=== PATIENT | male | born 1995 | race Caucasian/White ===

== ENCOUNTER 2020-08-26 12:18 | Emergency (ER) | payer OTHER, SELFPAY ==
--- NOTE | 2020-08-26 | XR_ITS ---
EXAMINATION: XR KNEE, LEFT CLINICAL INFORMATION: Pain COMPARISON: None TECHNIQUE: Four views of the left knee. FINDINGS: No visible acute fracture or dislocation. No effusion. Alignment is anatomic. Joint spaces are well maintained. No abnormal soft tissue calcification. IMPRESSION: No evidence of acute osseous abnormality.
--- NOTE | 2020-08-26 | XR_ITS ---
EXAMINATION: XR ANKLE, LEFT XR FOOT, LEFT CLINICAL INFORMATION: Pain. COMPARISON: 03/22/2018 TECHNIQUE: Ankle 3 views. Foot 3 views. FINDINGS: At the ankle joint, the ankle mortise is maintained. No acute fracture or dislocation of the tibiotalar joint. Redemonstrated is lateral positioning of the navicular, with medial uncovering of the talar head. Pes planus. Talar beaking is again noted which can be seen with talonavicular coalition, with no definite osseous coalition identified on the provided views. Tarsometatarsal alignment is within normal limits. No evidence of acute fracture. Mild hallux valgus. IMPRESSION: 1. No evidence of acute osseous abnormality. 2. Chronic deformity of the midfoot with lateral positioning of the navicular at the talonavicular articulation is again noted. Similar appearance of talar beaking, which can be seen with talonavicular coalition.
[2020-08-26 12:33] VITALS: BP 137/82; PULSE 80; RESP 18; TEMP 37; O2SAT 98; BMI 38.5
--- NOTE | 2020-08-26 13:06 | ED_ITS ---
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 Mode of arrival: ambulatory Limitations: no limitations History of Present Illness MD complaint: knee injury, leg injury and ankle injury Onset (ago): unknown () Injury: Left: knee, ankle and foot Type of Injury: other (fall) Place: work Severity: moderate Relieving factors: nothing Exacerbating factors: weight bearing and movement Context: fall Associated symptoms: swelling Other symptoms: none Related Data Previous Rx's Medication Instructions Recorded cyclobenzaprine 10 mg PO TID PRN #14 tab 08/26/20 ibuprofen 600 mg PO TID PRN #30 tab 08/26/20 Allergies Allergy/AdvReac Type Severity Reaction Status Date / Time No Known Allergies Allergy Verified 08/26/20 12:33 [No Known Allergies*] Review of Systems Review of Systems: Constitutional : No Fever, No Chills ENT/Mouth : No Ear Pain, No Hoarseness, No sore throat Cardiovascular : No Chest Pain, No SOB Respiratory : No Cough, No Dyspnea Gastrointestinal : No Nausea, No Vomiting, No Diarrhea, No abdominal Pain Musculoskeletal : positive joint pain, No Myalgias, positve Joint Swelling Skin : No Skin lacerations, No rash Neuro : No Weakness, No Numbness Psych : No Anxiety/Panic, No Depression Heme/Lymph: no easy bruising, no Lymphadenopathy All other systems reviewed and are negative PMFSH Past Medical History Medical History (Updated 08/26/20 @ 14:40 by Holly Valladares DO) Arthritis Surgical History (Updated 08/26/20 @ 13:14 by Holly Valladares DO) Hx of appendectomy Social History Social History (Updated 08/26/20 @ 13:13 by Holly Valladares DO) Smoking Status: Current every day smoker Use of substances other than those prescribed or required for medical reasons: No Advance Directives: No Advance Directives Information Provided: Yes Physical Exam Vital Signs and I&O and Narrative: Vital Signs and I&O: Vital Signs Temp 98.6 F 08/26/20 12:33 Pulse 80 08/26/20 12:33 Resp 18 08/26/20 12:33 BP 137/82 08/26/20 12:33 Pulse Ox 98 08/26/20 12:33 Intake & Output 08/25/20 08/26/20 08/26/20 18:59 06:59 18:59 Weight 136.078 kg Body Mass Index 38.5 Appearance: Alert. Oriented X3. No acute distress. Eyes: Pupils equal, round and reactive to light. ENT: Pharynx normal. Neck: Normal inspection. Neck supple. CVS: Normal heart rate and rhythm. Pulses normal. Respiratory: No respiratory distress. Breath sounds normal. Abdomen: Soft and nontender. Skin: Skin warm and dry. Normal skin color. Normal skin turgor. Extremities: No lower extremity edema. ttp along L knee no swelling or signs of infection, mild swelling L ankle and foot, bunion left foot - NV intact, no signs of infection, no calf ttp Neuro: Oriented X 3. No motor deficit. No sensory deficit. Course Course Course Narrative: no acute findings will DC and refer to orthepidics MDM - Extremity Injury (Lower) MDM Narrative Medical decision making narrative: patient with what he reports is ?pinning of L hip he is s/p fall in November at work - did not get xrays of L knee/ankle/foot has had pain and swelling since, NV intact, no signs of infection, no signs of DVT, xrays ordered Discharge Plan Discharge Clinical Impression: Arthralgia Qualifiers: Joint pain location: foot Laterality: left Qualified Code(s): M25.572 - Pain in left ankle and joints of left foot Patient Disposition: Home, Self-Care Instructions: Arthralgia (ED) Prescriptions: New cyclobenzaprine 10 mg tablet 10 mg PO TID PRN (Reason: muscle spasm) Qty: 14 RF: 0 ibuprofen 600 mg tablet 600 mg PO TID PRN (Reason: pain) Qty: 30 RF: 0 Referrals: Nathalie Alvarado PA-C [Physician Brand Marketing Manager] - 1 week (call for appointment) Stand Alone Forms: Work/School Release
== END 2020-08-26 15:46 | disposition home or self-care (01) ==
PROVIDERS: Emergency Provider Emergency Medicine
DX: M25.572 Pain in left ankle and joints of left foot (principal); F17.200 Nicotine dependence, unspecified, uncomplicated; Z71.6 Tobacco abuse counseling
CPT/HCPCS: 73564; 73610; 73630; 99283; 99284

== ENCOUNTER 2020-09-09 09:17 | Outpatient (REF) | payer OTHER, SELFPAY | END 2020-09-09 09:18 | disposition home or self-care (01) | LOC: HO.LAB 09:17 | PROVIDERS: Visit Provider Internal Medicine | DX: Z20.828 Contact with and (suspected) exposure to other viral communicable diseases (principal) | CPT/HCPCS: 87635 ==

== ENCOUNTER 2020-12-26 08:38 | Emergency (ER) | payer OTHER, SELFPAY ==
--- NOTE | ~2020-12-26 | XR_ITS ---
EXAMINATION: LEFT KNEE AND LEFT ANKLE. CLINICAL INFORMATION: Fall. COMPARISON: Left ankle 08/26/2020 TECHNIQUE: Left knee 4 views and left ankle 4 views. FINDINGS: Left ankle: The ankle mortise joint spaces preserved. There is lateral positioning of the navicular bone in relation to the talar head with moderate talonavicular beaking. No visible fracture seen. Pes planus deformity is visualized. There is suboptimal visualization of subtalar joint. There is moderate proximal dorsal foot soft tissue swelling. Left knee: There is no visible fracture, dislocation or subluxation. The soft tissues are normal. No joint effusion seen.. XR/XR knee LT 4V IMPRESSION: Chronic deformity midfoot region with lateral positioning of medical bony relation to the talus and a moderate sized talonavicular beaking. No visible fracture. Further evaluation with CT left ankle and orthopedic consult can be performed if patient has continued pain. Unremarkable left knee exam
--- NOTE | ~2020-12-26 | XR_ITS ---
EXAMINATION: LEFT KNEE AND LEFT ANKLE. CLINICAL INFORMATION: Fall. COMPARISON: Left ankle 08/26/2020 TECHNIQUE: Left knee 4 views and left ankle 4 views. FINDINGS: Left ankle: The ankle mortise joint spaces preserved. There is lateral positioning of the navicular bone in relation to the talar head with moderate talonavicular beaking. No visible fracture seen. Pes planus deformity is visualized. There is suboptimal visualization of subtalar joint. There is moderate proximal dorsal foot soft tissue swelling. Left knee: There is no visible fracture, dislocation or subluxation. The soft tissues are normal. No joint effusion seen.. XR/XR ankle LT min 3V IMPRESSION: Chronic deformity midfoot region with lateral positioning of medical bony relation to the talus and a moderate sized talonavicular beaking. No visible fracture. Further evaluation with CT left ankle and orthopedic consult can be performed if patient has continued pain. Unremarkable left knee exam
[2020-12-26 08:55] VITALS: BP 133/84; PULSE 78; RESP 16; TEMP 37.2; O2SAT 96; BMI 38.7
--- NOTE | 2020-12-26 09:03 | PC.NURSE ---
left leg elevated, +pp, cold pack to knee/foot
--- NOTE | 2020-12-26 09:19 | ED_ITS ---
HPI - Extremity Injury (Lower) General Chief Complaint: Extremity Injury, Lower Stated Complaint: FALL Time Seen by Provider: 12/26/20 09:16 History of Present Illness HPI Narrative: Patient is a 25-year-old male slipped on ice. Complaining of pain to the left knee and to the left ankle. Denies loss of consciousness. Denies any systemic complaints. No head injury. Not on blood thinners. Patient from home. No bowel urinary incontinence and no back pain. Pain is 7/10 worse with movement Related Data Previous Rx's Medication Instructions Recorded cyclobenzaprine 10 mg PO TID PRN #14 tab 08/26/20 ibuprofen 600 mg PO TID PRN #30 tab 08/26/20 Allergies Allergy/AdvReac Type Severity Reaction Status Date / Time No Known Allergies Allergy Verified 08/26/20 12:33 [No Known Allergies*] Review of Systems Review of Systems: Constitutional: No Weight loss, No Fever, No Chills, No Night Sweats, No Fatigue, No Malaise ENT/Mouth: No Hearing loss, No Ear Pain, No Nasal Congestion, No Sinus Pain, No Hoarseness, No sore throat, No Rhinorrhea, No Swallowing Difficulty Eyes: No Eye Pain, No Swelling, No Redness, No Foreign Body, No Discharge, No Vision Changes Cardiovascular: No Chest Pain, No SOB, No Dyspnea on Exertion, No Orthopnea, No Edema, No Palpitations Respiratory: No Cough, No Sputum, No Wheezing, No Smoke Exposure, No Dyspnea Gastrointestinal: No Nausea, No Vomiting, No Diarrhea, No Constipation, No abdominal Pain, No Hematochezia, No Melena Genitourinary: no irregular bleeding, No Dysuria, No Urinary Frequency, No Hematuria, No Urinary Incontinence, No Urgency, No Flank Pain, No Urinary Flow Changes, No Hesitancy Musculoskeletal: Positive joint pain, No Myalgias, No Joint Swelling Skin: No Skin Lesions, No rash Neuro: No Weakness, No Numbness, No Paresthesias, No Loss of Consciousness, No Dizziness, No Headache Psych: No Anxiety/Panic, No Depression, No SI/HI/AH/VH, No Social Issues, Heme/Lymph: No Bruising, No Bleeding,No Lymphadenopathy Endocrine: No Polyuria, No Polydipsia, No Temperature Intolerance [facility] Past Medical History Attestation statement: The following information was validated with the patient. Medical History Arthritis Surgical History History of hip surgery Hx of appendectomy Social History Social History Smoking Status: Current every day smoker Smoked in Last 30 Days: No Use of substances other than those prescribed or required for medical reasons: No Advance Directives: No Advance Directives Information Provided: No Physical Exam Vital Signs: Vital Signs: Last Vital Signs Temp 98.9 F 12/26/20 08:55 Pulse 78 12/26/20 08:55 Resp 16 12/26/20 08:55 BP 133/84 12/26/20 08:55 Pulse Ox 96 12/26/20 08:55 Body Mass Index 38.7 Appearance: Alert. Oriented X3. No acute distress. Eyes: Pupils equal, round and reactive to light. ENT: Pharynx normal. Neck: Normal inspection. Neck supple. No lymph nodes noted. No crepitus CVS: Normal heart rate and rhythm. Pulses normal. Normal S1 and S2 Respiratory: No respiratory distress. Breath sounds normal. No Wheezing. No rales Abdomen: Soft and nontender. No rigidity. No distention. good BS x4 Skin: Skin warm and dry. Normal skin color. Normal skin turgor. Extremities: No lower extremity edema. Neurovascular intact to all extremities. No Lacerations. No Rash Neuro: Oriented X 3. Positive pain to the left knee. Limited range of motion. There is no patellar tenderness. No tenderness on palpation of the medial or lateral collateral ligament. Positive pain on palpation to the medial malleolus. Sensation intact. Pulses 2+.. No sensory deficit. Moving all extermities. No slurred speech MDM - Extremity Injury (Lower) MDM Narrative Medical decision making narrative: X-ray showed no acute fracture. Will offer patient Motrin. Crutches for comfort if he needs. Will discharge patient home. In stable condition. Follow-up outpatient basis. Differential Diagnosis Differential diagnosis: Likely ankle sprain and strain Medical Records Attestation: I reviewed the patient's medical records. Lab Data Attestation: I reviewed the patient's lab results. Discharge Plan Discharge Clinical Impression: Ankle sprain and strain, Knee sprain Patient Disposition: Home, Self-Care Prescriptions: No Action cyclobenzaprine 10 mg tablet 10 mg PO TID PRN (Reason: muscle spasm) Qty: 14 RF: 0 ibuprofen 600 mg tablet 600 mg PO TID PRN (Reason: pain) Qty: 30 RF: 0 Referrals: Jorge Alberto Ferraro MD [Physician] - 2 days Print Language: Panamanian
== END 2020-12-26 10:37 | disposition home or self-care (01) ==
PROVIDERS: Emergency Provider Emergency Medicine Emergency Medical Services
DX: S93.402A Sprain of unspecified ligament of left ankle, initial encounter (principal); S96.912A Strain of unspecified muscle and tendon at ankle and foot level, left foot, initial encounter; S83.92XA Sprain of unspecified site of left knee, initial encounter; W00.0XXA Fall on same level due to ice and snow, initial encounter; Y93.9 Activity, unspecified; Y92.480 Sidewalk as the place of occurrence of the external cause; Y99.9 Unspecified external cause status
CPT/HCPCS: 73564; 73610; 99283

== ENCOUNTER 2021-01-21 10:01 | Outpatient (REF) | payer OTHER, SELFPAY ==
--- NOTE | ~2021-01-21 | XR_ITS ---
EXAMINATION: LEFT HIP AND PELVIS X-RAY CLINICAL INFORMATION: Pain COMPARISON: Previous x-ray December 2019 TECHNIQUE: One view of the pelvis and 2 views of the left hip FINDINGS: There is a single orthopedic screw seen in the left proximal femur. This appears unchanged. No fracture, dislocation or x-ray evidence of loosening is seen. The joint spaces are normal. Bones of the pelvis are normal. Soft tissues are normal. XR/XR pelvis 1-2V IMPRESSION: Stable postsurgical changes with single screw in the left proximal femur. Otherwise unremarkable exam.
--- NOTE | ~2021-01-21 | XR_ITS ---
EXAMINATION: LEFT HIP AND PELVIS X-RAY CLINICAL INFORMATION: Pain COMPARISON: Previous x-ray December 2019 TECHNIQUE: One view of the pelvis and 2 views of the left hip FINDINGS: There is a single orthopedic screw seen in the left proximal femur. This appears unchanged. No fracture, dislocation or x-ray evidence of loosening is seen. The joint spaces are normal. Bones of the pelvis are normal. Soft tissues are normal. XR/XR hip LT min 2V IMPRESSION: Stable postsurgical changes with single screw in the left proximal femur. Otherwise unremarkable exam.
== END 2021-01-21 10:02 | disposition home or self-care (01) ==
LOC: HO.XRAY 10:01
PROVIDERS: PCP Internal Medicine; Visit Provider Physician Assistant
DX: M76.892 Other specified enthesopathies of left lower limb, excluding foot (principal)
CPT/HCPCS: 72170; 73502; 99212

== ENCOUNTER 2021-05-11 15:00 | Outpatient (RCR) | payer OTHER, SELFPAY ==
--- NOTE | 2021-03-11 17:08 | MHC.PT.EP ---
[facility] [place] Office [place] Office [place] Office [address] Benny Sullivan [address] [phone] F: [phone] F: [phone] F: [phone] F: [phone] Physical Therapy Plan of Care Date of Evaluation: Date of Surgery: Diagnosis: other specified enthesopathies of left lower limb, excluding foot Assessment: 25 y/o M referred to PT with other specified enthesopathies of left lower limb, foot excluded. He slipped and fell over one year ago while at work landing on L hip. He has had pain since with difficulty walking, standing, and lifting. Of note, he did have PT one year ago which he reported helped somewhat. Examination shows decreased lumbar AROM, decreased L LE strength, leg length discrepancy (L LE shorter), SI dysfunction, and impaired gait pattern. S/s consistent with SI dysfunction and hip dysfucntion. Recommend PT 2x/wee for 5 weeks to address impairments, implement HEP, and optimize functional mobility. Frequency and Duration: The patient will be seen 2x/week for 5 weeks Short Term Goals: 3 weeks: 1. I with HEP 2. Pt will demonstrate 100% lumbar flexion with pain < 3/10 Color Weigher Goals: 5 weeks 1. I with HEP and self management of sx 2. Improve LE strength by one MMT grade to facilitate walking > 30min 3. Pt will be able to lift 25# with proper mechanics and no cues Treatment Plan: Modalities to reduce pain, spasms and effusion. Manual therapy to restore motion and function. Therapeutic exercise to improve strength and flexibility. Neuromuscular re-education for posture and balance. Therapeutic activities to return to functional activities of daily living. Electronically signed by: Mary Connell PT Please sign and return to therapist. Thank you for your referral.
--- NOTE | 2021-05-19 16:03 | MHC.PT.DC ---
[facility] [place] Office [place] Office [place] Office [address] Benny Sullivan [address] [phone] F: [phone] F: [phone] F: [phone] F: [phone] Physical Therapy Discharge Report Diagnosis: other specified enthesopathies of left lower limb, excluding foot Date of Surgery: Date of Evaluation: 03/11/21 Date of Discharge: 05/19/21 Treatments to Date: 10 Cancellations to Date: 0 No Shows to Date: 0 Discharge Status: Improved Function Independent with HEP Discharge Summary: D/c to I HEP. From last visit Pt able to continue paula all exercises with no increase in pain. Pt agreeable to d/c to I with HEP today. Electronically signed by: Mary Connell PT Please sign and return to therapist. Thank you for your referral.
== END 2021-05-19 16:03 | disposition home or self-care (01) ==
LOC: HO.PT 15:00
PROVIDERS: Visit Provider Physician Assistant
DX: M76.892 Other specified enthesopathies of left lower limb, excluding foot (principal)
CPT/HCPCS: 97110; 97112; 97140; 97161; 97530

== ENCOUNTER 2021-06-30 08:32 | Outpatient (REF) | payer OTHER, SELFPAY ==
[2021-06-30 09:21] LABS: MANUAL DIFF FLAG NO
[2021-06-30 09:26] LABS: Basophils Percent Auto 0.6 % (0-2); Eosinophils Absolute Auto 0.3 X10*3/uL (0.0-0.4); Eosinophils Percent Auto 3.9 % (0-4); Hematocrit 42.4 % (42-52); Hemoglobin 13.8 g/dl (14.0-18.0); Imm Gran Abs Auto 0.02 X10*3/uL (0.00-0.03); Imm Gran Pct Auto 0.3 % (0.0-0.4); Lymphocytes Absolute Auto 2.5 X10*3/uL (1.2-4.9); Lymphocytes Percent Auto 39.7 % (20-40); Mean Corpuscular HGB Conc 32.5 g/dl (31.0-36.0); Mean Corpuscular Hemoglobin 27.2 pg (27.0-33.0); Mean Corpuscular Volume 83.6 fL (80-98); Mean Platelet Volume 11.2 fL (9.4-12.4); Monocytes Absolute Auto 0.4 X10*3/uL (0.1-1.2); Monocytes Percent Auto 6.8 % (2-11); Neutrophils Absolute Auto 3.1 X10*3/uL (2.0-8.3); Neutrophils Percent Auto 48.7 % (45-73); Platelet Count 254 X10*3/uL (160-400); Red Blood Count 5.07 X10*6/uL (4.60-5.80); White Blood Count 6.4 X10*3/uL (4.8-10.8)
[2021-06-30 09:45] LABS: Alanine Aminotransferase 60 U/L (0-40); Albumin Level 4.5 g/dL (3.5-5.0); Alkaline Phosphatase 84 U/L (39-117); Anion Gap 12 (12-20); Aspartate Amino Transferase 35 U/L (5-37); Bilirubin Total 0.7 mg/dL (0.0-1.0); Blood Urea Nitrogen 14 mg/dL (9-16); Carbon Dioxide 25 mmol/L (22-29); Chloride 105 mmol/L (96-108); Cholesterol 173 mg/dL; Estimated Glomerular Filt Rate > 60; Glucose Fasting 94 mg/dL (60-99); HDL Cholesterol 43 mg/dL; LDL Cholesterol Calculated 104 mg/dl; Potassium 4.6 mmol/L (3.3-5.1); Sodium 137 mmol/L (135-145); Total Protein 7.6 g/dL (6.5-8.0); Triglycerides 132 mg/dL
== END 2021-06-30 08:33 | disposition home or self-care (01) ==
LOC: HO.LAB 08:32
PROVIDERS: PCP Internal Medicine; Visit Provider Internal Medicine
DX: E66.01 Morbid (severe) obesity due to excess calories (principal); E78.5 Hyperlipidemia, unspecified; D64.9 Anemia, unspecified
CPT/HCPCS: 36415; 80053; 80061; 85025

== ENCOUNTER → 2021-07-22 15:36 | Outpatient (BNVA) | payer OTHER, SELFPAY | PROVIDERS: PCP Internal Medicine; Visit Provider Physician Assistant | DX: M76.892 Other specified enthesopathies of left lower limb, excluding foot (principal) | CPT/HCPCS: 99212 ==

== ENCOUNTER 2021-07-30 06:54 | Emergency (ER) | payer OTHER, SELFPAY ==
--- NOTE | ~2021-07-30 | XR_ITS ---
EXAMINATION: XR ANKLE, LEFT CLINICAL INFORMATION: Reason injury COMPARISON: Previous x-rays most recent December 2020 TECHNIQUE: AP, lateral, and mortise views of the left ankle. FINDINGS: No acute fracture or dislocation is seen. There is pes planus. There is abnormal alignment of the talus and navicular bone that is unchanged. There is arthritis of the hindfoot. There is a talar beak that can be seen with talar coalition. Soft tissues are unremarkable. XR/XR ankle LT min 3V IMPRESSION: No acute fracture or dislocation. Pes planus and degenerative changes of the hindfoot. Possible talocalcaneal coalition should be considered.
[2021-07-30 07:33] VITALS: BP 140/94; PULSE 82; RESP 18; TEMP 36.9; O2SAT 97; BMI 39.8
--- NOTE | 2021-07-30 07:40 | ED_ITS ---
HPI - Extremity Injury (Lower) General Chief Complaint: Extremity Injury, Lower Stated Complaint: L HEEL AND ANKLE PAIN Time Seen by Provider: 07/30/21 07:31 Source: patient Mode of arrival: ambulatory Limitations: no limitations History of Present Illness HPI Narrative: Patient comes to emergency room complaining of left ankle pain. Patient states that in December of this year he sprained his ankle. He has been having intermittent pain. Now it is worse on the dorsum of his foot. Patient states that he is able to bear weight but with pain. Patient also complaining of bunion pain on the left foot. Patient does not recall any recent injuries. Related Data Previous Rx's Medication Instructions Recorded omeprazole 20 mg capsule,delayed 20 mg PO DAILY 90 Days #90 cap 06/24/21 release acetaminophen 500 mg capsule 500 mg PO Q6H PRN #14 cap 07/30/21 Allergies Allergy/AdvReac Type Severity Reaction Status Date / Time No Known Allergies Allergy Verified 06/24/21 11:59 [No Known Allergies*] Review of Systems Review of Systems: Constitutional : No Weight loss, No Fever, No Chills, No Night Sweats, No Fatigue, No Malaise ENT/Mouth : No Hearing loss, No Ear Pain, No Nasal Congestion, No Sinus Pain, No Hoarseness, No sore throat, No Rhinorrhea, No Swallowing Difficulty Eyes: No Eye Pain, No Swelling, No Redness, No Foreign Body, No Discharge, No Vision Changes Cardiovascular : No Chest Pain, No SOB, No Dyspnea on Exertion, No Orthopnea, No Edema, No Palpitations Respiratory : No Cough, No Sputum, No Wheezing, No Smoke Exposure, No Dyspnea Gastrointestinal : No Nausea, No Vomiting, No Diarrhea, No Constipation, No abdominal Pain, No Hematochezia, No Melena Genitourinary : no irregular bleeding, No Dysuria, No Urinary Frequency, No Hematuria, No Urinary Incontinence, No Urgency, No Flank Pain, No Urinary Flow Changes, No Hesitancy Musculoskeletal : Complaining of left ankle pain, pain in the dorsum of the left foot/bunion pain. No Myalgias, No Joint Swelling Skin : No Skin Lesions, No rash Neuro : No Weakness, No Numbness, No Paresthesias, No Loss of Consciousness, No Dizziness, No Headache Psych : No Anxiety/Panic, No Depression, No SI/HI/AH/VH, No Social Issues, Heme/Lymph: No Bruising, No Bleeding,No Lymphadenopathy Endocrine : No Polyuria, No Polydipsia, No Temperature Intolerance [facility] Past Medical History Medical History Arthritis GERD (gastroesophageal reflux disease) Left foot pain Left hip pain Morbid obesity Surgical History History of hip surgery Hx of appendectomy Social History Social History Housing: Apartment Alcohol intake: current Alcohol intake frequency: holidays/special occasions only Alcohol type: beer Patient Tobacco Use Status: Current everyday Tobacco user Cigarettes Per Day: 4 Advance Directives: Yes Advance Directives Information Provided: Yes Advance Directives on File: No Current occupational status: employed Physical Exam Vital Signs: Vital Signs: Last Vital Signs Temp 98.5 F 07/30/21 07:33 Pulse 82 07/30/21 07:33 Resp 18 07/30/21 07:33 BP 140/94 H 07/30/21 07:33 Pulse Ox 97 07/30/21 07:33 Body Mass Index 39.8 Const: Other: Appearance: Alert. Oriented X3. No acute distress. Eyes: Pupils equal, round and reactive to light. ENT: Pharynx normal. Neck: Normal inspection. Neck supple. No lymph nodes noted. No crepitus CVS: Normal heart rate and rhythm. Pulses normal. Normal S1 and S2 Respiratory: No respiratory distress. Breath sounds normal. No Wheezing. No rales Abdomen: Soft and nontender. No rigidity. No distention. good BS x4 Skin: Skin warm and dry. Normal skin color. Normal skin turgor. Extremities: Normal ankle, normal range of motion No Lacerations. No Rash Neuro: Oriented X 3. No motor deficit. No sensory deficit. Moving all extermities. No slurred speech. Course Course Course Narrative: I discussed the x-ray with the patient, there are no acute findings, however he does all the chronic abnormal alignment of the talus and navicular bone. For hallux valgus deformity, patient will need to follow up with Podiatry. MDM - Extremity Injury (Lower) Imaging Data Foot x-ray: Radiologist's impression: No acute fracture or dislocation is seen. There is pes planus. There is abnormal alignment of the talus and navicular bone that is unchanged. There is arthritis of the hindfoot. There is a talar beak that can be seen with talar coalition. Soft tissues are unremarkable. XR/XR ankle LT min 3V IMPRESSION: No acute fracture or dislocation. Pes planus and degenerative changes of the hindfoot. Possible talocalcaneal coalition should be considered. Discharge Plan Discharge Clinical Impression: Ankle joint pain Qualifiers: Laterality: left Qualified Code(s): M25.572 - Pain in left ankle and joints of left foot Patient Disposition: Home, Self-Care Instructions: Arthralgia (ED) Additional Instructions: Please follow-up with your primary care physician tomorrow. If you have any worsening or new symptoms, please return to the emergency room or call 911 Prescriptions: New acetaminophen 500 mg capsule 500 mg PO Q6H PRN (Reason: pain) Qty: 14 RF: 0 No Action omeprazole 20 mg capsule,delayed release(DR/EC) 20 mg PO DAILY 90 Days Qty: 90 RF: 0
== END 2021-07-30 09:48 | disposition home or self-care (01) ==
PROVIDERS: Emergency Provider Emergency Medicine; PCP Internal Medicine
DX: M25.572 Pain in left ankle and joints of left foot (principal)
CPT/HCPCS: 73610; 99282; 99283

== ENCOUNTER 2021-10-21 11:00 | Outpatient (RCR) | payer OTHER, SELFPAY ==
--- NOTE | 2021-10-02 13:55 | MHC.PT.EP ---
[facility] [place] [facility] [place] [facility] [place] Office [address] Benny Sullivan [address] [phone] F: [phone] F: [phone] F: [phone] F: [phone] Physical Therapy Plan of Care Date of Evaluation: Date of Surgery: n/a Diagnosis: Pain in L hip Assessment: Patient is a 26 year old male presenting to PT with complaints of pain in his L hip. Pt reports onset of pain began about 1 year ago due to slipping on ice. He presents today with impairments in pain, quad muscle length, iliopsoas muscle length, and hip strength. 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 Pt expresses contact lens assistant goal of reducing pain, and is motivated to work towards this in PT. Clinical presentation today is most consistent with signs and sx associated with that is likely myofascial in nature and related to hip flexor tightness and pt will benefit from skilled PT to address the following problems and impairments noted upon evaluation: pain, quad muscle length, iliopsoas muscle length, and hip strength. These problems limit the patient with the following functional activities: ambulation, standing, and stair negotiation. The prescribed treatment plan of care is medically necessary. Co-morbidities of nail in L femur were identified and taken into considerations of plan of care. Pt was educated on HEP, role of PT, prognosis, POC. Frequency and Duration: The patient will be seen 2x week x 4 weeks Short Term Goals: Pt will demonstrate improved quad muscle length as evidence by negative prone quad test in 2 weeks. Pt will demonstrate improved hip strength by 1/3 MMT for improved lumbopelvic stability in 2 weeks. Pt will demonstrate decreased pain to <3/10 in 2 weeks at rest for improved QOL. Repossession Agent Goals: Pt will demonstrate ability to ambulate with min to no antalgic pattern in 4 weeks. Pt will demonstrate ability to negotiate stairs with min to no pain in 4 weeks. Pt will demonstrate improved LEFI score by 9 points in 4 weeks for improved functional mobility. Treatment Plan: Modalities to reduce pain, spasms and effusion. Manual therapy to restore motion and function. Therapeutic exercise to improve strength and flexibility. Neuromuscular re-education for posture and balance. Therapeutic activities to return to functional activities of daily living. Electronically signed by: Naina Menjivar PT, DPT, ATC Please sign and return to therapist. Thank you for your referral.
--- NOTE | 2021-11-05 15:58 | MHC.PT.DC ---
[facility] [place] [facility] [place] Office [place] Office [address] [phone] F: [phone] F: [phone] F: [phone] F: [phone] Physical Therapy Discharge Report Diagnosis: Pain in L hip Date of Surgery: n/a Date of Evaluation: 10/21/21 Date of Discharge: 11/05/21 Treatments to Date: 4 Cancellations to Date: 5 No Shows to Date: 2 Discharge Status: Visit Non-compliance Discharge Summary: Pt has no showed and cancelled his 3 final appointments. Pt has not reached out in over 2 weeks and therefore pt status unknown at this time. Electronically signed by: Naina Menjivar, PT, DPT, ATC Please sign and return to therapist. Thank you for your referral.
== END 2021-11-05 16:07 | disposition home or self-care (01) ==
LOC: HO.PT 11:00
PROVIDERS: PCP Internal Medicine; Visit Provider Internal Medicine
DX: M25.552 Pain in left hip (principal)
CPT/HCPCS: 97110; 97161; 97530

== ENCOUNTER 2021-11-17 11:27 | Emergency (ER) | payer OTHER, SELFPAY ==
--- NOTE | ~2021-11-17 | XR_ITS ---
EXAMINATION: XR CHEST CLINICAL INFORMATION: Cough. COMPARISON: None TECHNIQUE: Frontal view of the chest was obtained. FINDINGS: No significant abnormality is noted involving the heart, lungs, mediastinum, bony thorax or soft tissues. XR/XR chest 1V IMPRESSION: Unremarkable examination.
[2021-11-17 12:37] VITALS: BP 165/75; PULSE 91; RESP 20; TEMP 36.9; O2SAT 97; BMI 39.8
[2021-11-17 13:36] LABS: Influenza A PCR NEGATIVE (Negative); Influenza B PCR NEGATIVE (Negative); Resp Syncy Virus RNA Qual PCR NEGATIVE (Negative); SARS COV2 PCR INHOUSE NEGATIVE (Negative)
--- NOTE | 2021-11-17 18:09 | PC.NURSE ---
this patient was not seen by this nurse, pt was discharged by provider
--- NOTE | 2021-11-20 14:04 | ED_ITS ---
HPI - URI/Sore Throat General Chief Complaint: Upper Respiratory Symptoms Stated Complaint: COVID Symptoms Time Seen by Provider: 11/17/21 15:57 History of Present Illness HPI Narrative: Patient complains of body aches , congestion, sore throat and headache with mild cough, no shortness of breath no chest pain Related Data Previous Rx's Medication Instructions Recorded acetaminophen 500 mg capsule 500 mg PO Q6H PRN #14 cap 07/30/21 omeprazole 20 mg capsule,delayed 20 mg PO DAILY 90 Days #90 cap 09/21/21 release Allergies Allergy/AdvReac Type Severity Reaction Status Date / Time No Known Allergies Allergy Verified 06/24/21 11:59 [No Known Allergies*] Review of Systems Review of Systems: Negatives are no fever no chills no dizziness no weakness no stiff neck no neck pain no difficulty breathing or swallowing no chest pain no abdominal pain no nausea vomiting or diarrhea no motor weakness no loss of sensation Yes all other systems are reviewed and are negative PMFSH Past Medical History Source: nursing notes reviewed Medical History Arthritis GERD (gastroesophageal reflux disease) Left foot pain Left hip pain Morbid obesity Surgical History History of hip surgery Hx of appendectomy Social History Social History Housing: Apartment Alcohol intake: current Alcohol intake frequency: holidays/special occasions only Alcohol type: beer Patient Tobacco Use Status: Current everyday Tobacco user Cigarettes Per Day: 4 Advance Directives: No Advance Directives Information Provided: No Current occupational status: employed Physical Exam Vital Signs: Vital Signs: Last Vital Signs Temp 98.5 F 11/17/21 12:37 Pulse 91 11/17/21 12:37 Resp 20 11/17/21 12:37 BP 165/75 H 11/17/21 12:37 Pulse Ox 97 11/17/21 12:37 BMI result Body Mass Index 39.8 General appearance no distress The eyes no redness or discharge The pharynx is clear with no redness swelling or exudate Neck is supple Chest clear to auscultation bilateral Heart no murmur Abdomen soft nontender Extremities full range of motion x4 Course Course Course Narrative: Well-appearing patient who is COVID negative is discharged MDM - URI/Sore Throat Lab Data Labs: Lab Results 11/17/21 Range/Units 12:45 Influenza Type A (PCR) NEGATIVE (Negative) Influenza Type B (PCR) NEGATIVE (Negative) RSV RNA Qual (PCR) NEGATIVE (Negative) SARS-CoV-2 RNA (RT-PCR) NEGATIVE (Negative) Discharge Plan Discharge Clinical Impression: Acute viral syndrome Patient Disposition: Home, Self-Care Additional Instructions: Your COVID test was negative and her chest x-ray was normal, but your symptoms are typical of COVID and not COVID test can miss cases so there is still a paul nce to have COVID Return any time for difficulty breathing, any worse condition or any concerns Your blood pressure was high so we recommend follow with primary doctor for further evaluation of high blood pressure Prescriptions: No Action omeprazole 20 mg capsule,delayed release(DR/EC) 20 mg PO DAILY 90 Days Qty: 90 RF: 0 acetaminophen 500 mg capsule 500 mg PO Q6H PRN (Reason: pain) Qty: 14 RF: 0 Stand Alone Forms: Work/School Release Interventions: ED Discharge Assessment Last Done: 11/17/21 18:09 Discharge Date/Time: 11/17/21 18:09
== END 2021-11-17 18:09 | disposition home or self-care (01) ==
PROVIDERS: Emergency Provider Emergency Medicine Emergency Medical Services; PCP Internal Medicine
DX: B34.9 Viral infection, unspecified (principal); Z20.822 Contact with and (suspected) exposure to COVID-19
CPT/HCPCS: 0241U; 71045; 99283

== ENCOUNTER 2023-02-28 12:12 | Emergency (ER) | payer OTHER, SELFPAY ==
[2023-02-28 13:09] VITALS: BP 144/72; PULSE 88; RESP 16; TEMP 36.8; O2SAT 99; BMI 40.4
--- NOTE | 2023-02-28 13:11 | ED_ITS ---
HPI - General Adult General Chief complaint: Abdominal Pain <HALLE Rivers - Last Filed: 02/28/23 17:12> Stated complaint: diarrhea nausea <HALLE Rivers - Last Filed: 02/28/23 17:12> Time Seen by Provider: 02/28/23 16:07 <HALLE Rivers - Last Filed: 02/28/23 17:12> Source: patient and home health care case manager <Ev Brooks MD - Last Filed: 02/28/23 16:34> Mode of arrival: ambulatory <Ev Brooks MD - Last Filed: 02/28/23 16:34> History of Present Illness HPI narrative: 27-year-old male who is unsure if he ate bad food states that he went to work today had [employer] and while at work he had an episode of diarrhea and 2 episodes of nausea and vomiting. He states his last diarrhea and vomiting were at 07:30 this morning and he has had no further episodes. He denies any associated sore throat, ear pain, fevers or chills. <Ev Brooks MD - Last Filed: 02/28/23 16:34> Related Data Home medications: Previous Rx's Medication Instructions Recorded acetaminophen 500 mg capsule 500 mg PO Q6H PRN pain #14 caps 07/30/21 omeprazole 20 mg capsule,delayed 20 mg PO DAILY 90 days #90 caps 09/21/21 release ondansetron HCl 4 mg tablet 4 mg PO Q8H PRN nausea and 02/28/23 vomiting 4 days #10 tabs <HALLE Rivers - Last Filed: 02/28/23 17:12> Allergies/adverse reactions: Allergies Allergy/AdvReac Type Severity Reaction Status Date / Time No Known Allergies Allergy Verified 06/24/21 11:59 [No Known Allergies*] <HALLE Rivers - Last Filed: 02/28/23 17:12> Review of Systems Review of Systems: Pertinent positives and negatives as stated in HPI <Ev Brooks MD - Last Filed: 02/28/23 16:34> PMFSH Past Medical History Source: nursing notes reviewed <Ev Brooks MD - Last Filed: 02/28/23 16:34> Medical History: Medical History Arthritis GERD (gastroesophageal reflux disease) Left foot pain Left hip pain Morbid obesity <HALLE Rivers - Last Filed: 02/28/23 17:12> Surgical History: Surgical History History of hip surgery Hx of appendectomy <HALLE Rivers - Last Filed: 02/28/23 17:12> Social History Social History: Social History Housing: Apartment Alcohol intake: current Alcohol intake frequency: holidays/special occasions only Alcohol type: beer Patient Tobacco Use Status: Current everyday Tobacco user Cigarettes Per Day: 4 Advance Directives: No Advance Directives Information Provided: Yes Current occupational status: employed <HALLE Rivers - Last Filed: 02/28/23 17:12> Physical Exam ED Vital Signs: Vital Signs - 24 hr 02/28/23 13:09 02/28/23 15:58 Temperature 98.2 F 98.1 F Pulse Rate 88 73 Respiratory Rate 16 16 Blood Pressure 144/72 H 135/75 Pulse Oximetry 99 99 Oxygen Delivery Method Room Air Room Air BMI result Body Mass Index 40.4 <HALLE Rivers - Last Filed: 02/28/23 17:12> Vital Signs - 24 hr 02/28/23 13:09 02/28/23 15:58 Temperature 98.2 F 98.1 F Pulse Rate 88 73 Respiratory Rate 16 16 Blood Pressure 144/72 H 135/75 Pulse Oximetry 99 99 Oxygen Delivery Method Room Air Room Air BMI result Body Mass Index 40.4 VITAL SIGNS: Reviewed. GENERAL: Well developed, well nourished, in no acute distress. HEAD: Normocephalic/atraumatic EYES: PERRLA, EOMI EARS: Ext canals without abnormality, TMs non-bulging and non-erythematous NOSE: Nares patent bilateral OROPHARYNX: no oral lesions noted, posterior pharynx clear and non-erythematous without noted tonsillar enlargement/erythema/exudates NECK: Supple, no adenopathy LUNGS: Normal breath sounds. No adventitious sounds or accessory muscle use. SpO2<99> CARDIOVASCULAR: Regular rate and rhythm without noted murmurs ABDOMEN: Soft, non-tender, non-distended with bowel sounds. MUSCULOSKELETAL: No tenderness, deformities, or effusions noted on gross inspection. EXTREMITIES: No cyanosis, clubbing or edema. SKIN: Inspection of the skin reveals no rashes NEUROLOGIC: Alert and oriented x 4. Strength and sensation to light touch were grossly intact x 4. <Ev Brooks MD - Last Filed: 02/28/23 16:34> Course Course Course Narrative: RME: 27 yold male presents to the ED for abdominal pain, diarrhea, nausea and vomiting from this morning. NO pinpoin tendernss on quick abdominal exam. SARS and labs ordered <HALLE Rivers - Last Filed: 02/28/23 17:12> Medical Decision Making Medical Decision Making MDM Narrative: 27-year-old male with history and clinical presentation after review of al l investigations my interpretation is this is a very mild gastroenteritis. Patient received Zofran here and is no longer nauseous or vomiting. <Ev Brooks MD - Last Filed: 02/28/23 16:34> Differential Diagnosis Please see the discussion above <Ev Brooks MD - Last Filed: 02/28/23 16:34> Lab Data Please see the discussion above <Ev Brooks MD - Last Filed: 02/28/23 16:34> Result Diagrams: 02/28/23 13:26 02/28/23 13:26 <HALLE Rivers - Last Filed: 02/28/23 17:12> Labs: Lab Results 02/28/23 02/28/23 02/28/23 Range/Units 13:22 13:26 13:26 WBC 6.4 (4.8-10.8) X10*3/uL RBC 5.23 (4.60-5.80) X10*6/uL Hgb 14.0 (14.0-18.0) g/dl Hct 43.6 (42.0-52.0) % MCV 83.4 (80.0-98.0) fL MCH 26.8 L (27.0-33.0) pg MCHC 32.1 (31.0-36.0) g/dl RDW 12.9 (11.0-16.0) % Plt Count 269 (160-400) X10*3/uL MPV 10.5 (9.4-12.4) fL Immature Gran % (Auto) 0.2 (0.0-0.4) % Neut % (Auto) 46.4 (45-73) % Lymph % (Auto) 43.4 H (20-40) % Mclean % (Auto) 6.6 (2-11) % Eos % (Auto) 2.8 (0-4) % Baso % (Auto) 0.6 (0-2) % Lymph # (Auto) 2.8 (1.2-4.9) X10*3/uL Mclean # (Auto) 0.4 (0.1-1.2) X10*3/uL Eos # (Auto) 0.2 (0.0-0.4) X10*3/uL Baso # (Auto) 0.0 (0.0-0.2) X10*3/uL Abs Immat Gran (auto) 0.01 (0.00-0.03) X10*3/uL Absolute Neuts (auto) 3.0 (2.0-8.3) x10*3/uL Absolute Nucleated RBC 0.000 (0.0-0.012) X10*3/uL Nucleated RBC % (auto) 0.0 (0.0-0.2) /100WBC Sodium 140 (135-145) mmol/L Potassium 4.4 (3.3-5.1) mmol/L Chloride 105 (96-108) mmol/L Carbon Dioxide 29 (22-29) mmol/L Anion Gap 10 L (12-20) BUN 10 (9-16) mg/dL Creatinine 1.19 (0.5-1.4) mg/dL Estim Creat Clear Calc 139.1 Estimated GFR > 60 Random Glucose 92 (60-115) mg/dL Calcium 9.6 (8.4-10.2) mg/dL Total Bilirubin 0.3 (0.0-1.0) mg/dL AST 35 (5-37) U/L ALT 58 H (0-40) U/L Alkaline Phosphatase 81 (39-117) U/L Total Protein 7.5 (6.5-8.0) g/dL Albumin 4.5 (3.5-5.0) g/dL Lipase 26 (8-78) U/L Urine Color Urine Appearance Urine pH (5.0-9.0) Ur Specific [employer] (1.005-1.025) Urine Protein (Neg-Trace) mg/dL Urine Glucose (UA) (Negative) mg/dL Urine Ketones (Negative) mg/dL Urine Blood (Negative) Urine Nitrite (Negative) Ur Leukocyte Esterase (Negative) Influenza Type A (PCR) NEGATIVE (Negative) Influenza Type B (PCR) NEGATIVE (Negative) RSV RNA Qual (PCR) NEGATIVE (Negative) SARS-CoV-2 RNA (RT-PCR) NEGATIVE (Negative) 02/28/23 Range/Units 13:49 WBC (4.8-10.8) X10*3/uL RBC (4.60-5.80) X10*6/uL Hgb (14.0-18.0) g/dl Hct (42.0-52.0) % MCV (80.0-98.0) fL MCH (27.0-33.0) pg MCHC (31.0-36.0) g/dl RDW (11.0-16.0) % Plt Count (160-400) X10*3/uL MPV (9.4-12.4) fL Immature Gran % (Auto) (0.0-0.4) % Neut % (Auto) (45-73) % Lymph % (Auto) (20-40) % Mclean % (Auto) (2-11) % Eos % (Auto) (0-4) % Baso % (Auto) (0-2) % Lymph # (Auto) (1.2-4.9) X10*3/uL Mclean # (Auto) (0.1-1.2) X10*3/uL Eos # (Auto) (0.0-0.4) X10*3/uL Baso # (Auto) (0.0-0.2) X10*3/uL Abs Immat Gran (auto) (0.00-0.03) X10*3/uL Absolute Neuts (auto) (2.0-8.3) x10*3/uL Absolute Nucleated RBC (0.0-0.012) X10*3/uL Nucleated RBC % (auto) (0.0-0.2) /100WBC Sodium (135-145) mmol/L Potassium (3.3-5.1) mmol/L Chloride (96-108) mmol/L Carbon Dioxide (22-29) mmol/L Anion Gap (12-20) BUN (9-16) mg/dL Creatinine (0.5-1.4) mg/dL Estim Creat Clear Calc Estimated GFR Random Glucose (60-115) mg/dL Calcium (8.4-10.2) mg/dL Total Bilirubin (0.0-1.0) mg/dL AST (5-37) U/L ALT (0-40) U/L Alkaline Phosphatase (39-117) U/L Total Protein (6.5-8.0) g/dL Albumin (3.5-5.0) g/dL Lipase (8-78) U/L Urine Color Yellow Urine Appearance Clear Urine pH 7.0 (5.0-9.0) Ur Specific [employer] 1.020 (1.005-1.025) Urine Protein Negative (Neg-Trace) mg/dL Urine Glucose (UA) Negative (Negative) mg/dL Urine Ketones Negative (Negative) mg/dL Urine Blood Negative (Negative) Urine Nitrite Negative (Negative) Ur Leukocyte Esterase Negative (Negative) Influenza Type A (PCR) (Negative) Influenza Type B (PCR) (Negative) RSV RNA Qual (PCR) (Negative) SARS-CoV-2 RNA (RT-PCR) (Negative) <HALLE Rivers - Last Filed: 02/28/23 17:12> Lab Results 02/28/23 02/28/23 02/28/23 Range/Units 13:22 13:26 13:26 WBC 6.4 (4.8-10.8) X10*3/uL RBC 5.23 (4.60-5.80) X10*6/uL Hgb 14.0 (14.0-18.0) g/dl Hct 43.6 (42.0-52.0) % MCV 83.4 (80.0-98.0) fL MCH 26.8 L (27.0-33.0) pg MCHC 32.1 (31.0-36.0) g/dl RDW 12.9 (11.0-16.0) % Plt Count 269 (160-400) X10*3/uL MPV 10.5 (9.4-12.4) fL Immature Gran % (Auto) 0.2 (0.0-0.4) % Neut % (Auto) 46.4 (45-73) % Lymph % (Auto) 43.4 H (20-40) % Mclean % (Auto) 6.6 (2-11) % Eos % (Auto) 2.8 (0-4) % Baso % (Auto) 0.6 (0-2) % Lymph # (Auto) 2.8 (1.2-4.9) X10*3/uL Mclean # (Auto) 0.4 (0.1-1.2) X10*3/uL Eos # (Auto) 0.2 (0.0-0.4) X10*3/uL Baso # (Auto) 0.0 (0.0-0.2) X10*3/uL Abs Immat Gran (auto) 0.01 (0.00-0.03) X10*3/uL Absolute Neuts (auto) 3.0 (2.0-8.3) x10*3/uL Absolute Nucleated RBC 0.000 (0.0-0.012) X10*3/uL Nucleated RBC % (auto) 0.0 (0.0-0.2) /100WBC Sodium 140 (135-145) mmol/L Potassium 4.4 (3.3-5.1) mmol/L Chloride 105 (96-108) mmol/L Carbon Dioxide 29 (22-29) mmol/L Anion Gap 10 L (12-20) BUN 10 (9-16) mg/dL Creatinine 1.19 (0.5-1.4) mg/dL Estim Creat Clear Calc 139.1 Estimated GFR > 60 Random Glucose 92 (60-115) mg/dL Calcium 9.6 (8.4-10.2) mg/dL Total Bilirubin 0.3 (0.0-1.0) mg/dL AST 35 (5-37) U/L ALT 58 H (0-40) U/L Alkaline Phosphatase 81 (39-117) U/L Total Protein 7.5 (6.5-8.0) g/dL Albumin 4.5 (3.5-5.0) g/dL Lipase 26 (8-78) U/L Urine Color Urine Appearance Urine pH (5.0-9.0) Ur Specific [employer] (1.005-1.025) Urine Protein (Neg-Trace) mg/dL Urine Glucose (UA) (Negative) mg/dL Urine Ketones (Negative) mg/dL Urine Blood (Negative) Urine Nitrite (Negative) Ur Leukocyte Esterase (Negative) Influenza Type A (PCR) NEGATIVE (Negative) Influenza Type B (PCR) NEGATIVE (Negative) RSV RNA Qual (PCR) NEGATIVE (Negative) SARS-CoV-2 RNA (RT-PCR) NEGATIVE (Negative) 02/28/23 Range/Units 13:49 WBC (4.8-10.8) X10*3/uL RBC (4.60-5.80) X10*6/uL Hgb (14.0-18.0) g/dl Hct (42.0-52.0) % MCV (80.0-98.0) fL MCH (27.0-33.0) pg MCHC (31.0-36.0) g/dl RDW (11.0-16.0) % Plt Count (160-400) X10*3/uL MPV (9.4-12.4) fL Immature Gran % (Auto) (0.0-0.4) % Neut % (Auto) (45-73) % Lymph % (Auto) (20-40) % Mclean % (Auto) (2-11) % Eos % (Auto) (0-4) % Baso % (Auto) (0-2) % Lymph # (Auto) (1.2-4.9) X10*3/uL Mclean # (Auto) (0.1-1.2) X10*3/uL Eos # (Auto) (0.0-0.4) X10*3/uL Baso # (Auto) (0.0-0.2) X10*3/uL Abs Immat Gran (auto) (0.00-0.03) X10*3/uL Absolute Neuts (auto) (2.0-8.3) x10*3/uL Absolute Nucleated RBC (0.0-0.012) X10*3/uL Nucleated RBC % (auto) (0.0-0.2) /100WBC Sodium (135-145) mmol/L Potassium (3.3-5.1) mmol/L Chloride (96-108) mmol/L Carbon Dioxide (22-29) mmol/L Anion Gap (12-20) BUN (9-16) mg/dL Creatinine (0.5-1.4) mg/dL Estim Creat Clear Calc Estimated GFR Random Glucose (60-115) mg/dL Calcium (8.4-10.2) mg/dL Total Bilirubin (0.0-1.0) mg/dL AST (5-37) U/L ALT (0-40) U/L Alkaline Phosphatase (39-117) U/L Total Protein (6.5-8.0) g/dL Albumin (3.5-5.0) g/dL Lipase (8-78) U/L Urine Color Yellow Urine Appearance Clear Urine pH 7.0 (5.0-9.0) Ur Specific [employer] 1.020 (1.005-1.025) Urine Protein Negative (Neg-Trace) mg/dL Urine Glucose (UA) Negative (Negative) mg/dL Urine Ketones Negative (Negative) mg/dL Urine Blood Negative (Negative) Urine Nitrite Negative (Negative) Ur Leukocyte Esterase Negative (Negative) Influenza Type A (PCR) (Negative) Influenza Type B (PCR) (Negative) RSV RNA Qual (PCR) (Negative) SARS-CoV-2 RNA (RT-PCR) (Negative) <Ev Brooks MD - Last Filed: 02/28/23 16:34> External Record Review External record reviewed: Prior outpatient labs <Ev Brooks MD - Last Filed: 02/28/23 16:34> Discharge Plan Discharge Clinical Impression: Gastroenteritis <HALLE Rivers - Last Filed: 02/28/23 17:12> Patient Disposition: Home, Self-Care <HALLE Rivers - Last Filed: 02/28/23 17:12> Instructions: Gastroenteritis (ED) <HALLE Rivers - Last Filed: 02/28/23 17:12> Additional Instructions: Se le weiss proporcionado evy receta para controlar las n?useas. Aumente la cantidad de l?quidos que marcelino, especialmente agua. Seguimiento con beach proveedor de atenci?n primaria. 1. You have been provided a prescription to control your nausea. Increase the amount of fluids that you are drinking, especially water. 2. Follow-up with your primary care provider. <HALLE Rivers - Last Filed: 02/28/23 17:12> Prescriptions: New ondansetron HCl 4 mg tablet 4 mg PO Q8H PRN (Reason: nausea and vomiting) 4 Days Qty: 10 0RF No Action omeprazole 20 mg capsule,delayed release(DR/EC) 20 mg PO DAILY 90 Days Qty: 90 0RF acetaminophen 500 mg capsule 500 mg PO Q6H PRN (Reason: pain) Qty: 14 0RF <HALLE Rivers - Last Filed: 02/28/23 17:12> Referrals: Yoana La MD [Primary Care Provider] - <HALLE Rivers - Last Filed: 02/28/23 17:12> Print Language: Panamanian <HALLE Rivers - Last Filed: 02/28/23 17:12>
[2023-02-28 13:44] LABS: MANUAL DIFF FLAG NO
[2023-02-28 13:45] LABS: Basophils Percent Auto 0.6 % (0-2); Eosinophils Absolute Auto 0.2 X10*3/uL (0.0-0.4); Eosinophils Percent Auto 2.8 % (0-4); Hematocrit 43.6 % (42.0-52.0); Imm Gran Abs Auto 0.01 X10*3/uL (0.00-0.03); Imm Gran Pct Auto 0.2 % (0.0-0.4); Lymphocytes Absolute Auto 2.8 X10*3/uL (1.2-4.9); Lymphocytes Percent Auto 43.4 % (20-40); Mean Corpuscular HGB Conc 32.1 g/dl (31.0-36.0); Mean Corpuscular Hemoglobin 26.8 pg (27.0-33.0); Mean Corpuscular Volume 83.4 fL (80.0-98.0); Mean Platelet Volume 10.5 fL (9.4-12.4); Monocytes Absolute Auto 0.4 X10*3/uL (0.1-1.2); Monocytes Percent Auto 6.6 % (2-11); Neutrophils Percent Auto 46.4 % (45-73); Platelet Count 269 X10*3/uL (160-400); Red Blood Count 5.23 X10*6/uL (4.60-5.80); Red Cell Distribution Width 12.9 % (11.0-16.0); White Blood Count 6.4 X10*3/uL (4.8-10.8)
[2023-02-28 13:59] LABS: Alanine Aminotransferase 58 U/L (0-40); Albumin Level 4.5 g/dL (3.5-5.0); Alkaline Phosphatase 81 U/L (39-117); Anion Gap 10 (12-20); Aspartate Amino Transferase 35 U/L (5-37); Bilirubin Total 0.3 mg/dL (0.0-1.0); Blood Urea Nitrogen 10 mg/dL (9-16); Calcium 9.6 mg/dL (8.4-10.2); Carbon Dioxide 29 mmol/L (22-29); Chloride 105 mmol/L (96-108); Creatinine Clr Calc Pharmacy 139.1; Estimated Glomerular Filt Rate > 60; Glucose Random 92 mg/dL (60-115); Lipase 26 U/L (8-78); Potassium 4.4 mmol/L (3.3-5.1); Sodium 140 mmol/L (135-145); Total Protein 7.5 g/dL (6.5-8.0)
[2023-02-28 13:59] LABS: Appearance Urine Clear; Color Urine Yellow; Glucose Urine UA Negative (Negative); Leukocyte Esterase Urine Negative (Negative); Nitrite Urine Negative (Negative); Urine Blood Negative (Negative); Urine Ketones Negative (Negative); Urine Protein Negative (Neg-Trace)
[2023-02-28 14:34] LABS: Influenza A PCR NEGATIVE (Negative); Influenza B PCR NEGATIVE (Negative); Resp Syncy Virus RNA Qual PCR NEGATIVE (Negative); SARS COV2 PCR INHOUSE NEGATIVE (Negative)
[2023-02-28 15:58] VITALS: BP 135/75; PULSE 73; RESP 16; TEMP 36.7; O2SAT 99
== END 2023-02-28 17:19 | disposition home or self-care (01) ==
PROVIDERS: Physician Assistant; Emergency Provider Student in an Organized Health Care Education/Training Program; PCP Internal Medicine
DX: K52.9 Noninfective gastroenteritis and colitis, unspecified (principal); Z20.822 Contact with and (suspected) exposure to COVID-19; Z20.828 Contact with and (suspected) exposure to other viral communicable diseases; Z79.899 Other long term (current) drug therapy
CPT/HCPCS: 0241U; 80053; 81003; 83690; 85025; 99283

== ENCOUNTER 2023-12-09 07:01 | Emergency (ER) | payer OTHER, SELFPAY ==
[2023-12-09 07:10] VITALS: BP 167/81; PULSE 92; RESP 18; TEMP 36.9; O2SAT 96; BMI 39.8
--- NOTE | 2023-12-09 07:42 | ED_ITS ---
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 He is not vaccinated. MD elicited complaint: cough and sore throat Onset (ago): day(s) (this AM) Consistency: constant Severity: mild Description of mucous: clear Able to tolerate fluids by mouth: Yes Exacerbating factors: swallowing Relieving factors: nothing Context: sick contacts Associated symptoms: myalgias and headache Treatments prior to arrival: none Related Data Previous Rx's Medication Instructions Recorded acetaminophen 500 mg capsule 500 mg PO Q6H PRN pain #14 caps 07/30/21 omeprazole 20 mg capsule,delayed 20 mg PO DAILY 90 days #90 caps 09/21/21 release ondansetron HCl 4 mg tablet 4 mg PO Q8H PRN nausea and 02/28/23 vomiting 4 days #10 tabs Allergies Allergy/AdvReac Type Severity Reaction Status Date / Time No Known Allergies Allergy Verified 06/24/21 11:59 [No Known Allergies*] Review of Systems Review of Systems: Constitutional : no fever, positive fatigue, positive Malaise ENT/Mouth : positive sore throat, positive runny nose Eyes: No Discharge Cardiovascular : No Chest Pain, No SOB Respiratory : pos Cough, No Sputum Gastrointestinal : No Nausea, No Vomiting, No Diarrhea Genitourinary : No Dysuria, No Urinary Frequency Musculoskeletal : positive Myalgia Skin : No rash Neuro : pos Headache PMFSH Past Medical History Attestation statement: The following information was validated with the patient. Source: old records reviewed Onset Date is defined in the Problem List Problems that require an onset date and time if occurred within 24 hrs of arrival to the ED Aortic Dissection and Rupture; Neurologic impairment; Cardiopulmonary Arrest; Endotracheal Intubation; Insertion or Replacement of Mechanical Circulatory Assist Device Medical History GERD (gastroesophageal reflux disease) Left hip pain Left foot pain Morbid obesity Arthritis Surgical History History of hip surgery Hx of appendectomy Social History Social History Housing: Apartment Alcohol intake: current Alcohol intake frequency: does not drink Alcohol type: beer Patient Tobacco Use Status: Current everyday Tobacco user Cigarettes Per Day: 4 Smoked in Last 30 Days: Yes Use of substances other than those prescribed or required for medical reasons: No Advance Directives: No Advance Directives Information Provided: No Current occupational status: employed Physical Exam Vital Signs: Vital Signs: Last Vital Signs Temp 98.5 F 12/09/23 07:10 Pulse 92 12/09/23 07:10 Resp 18 12/09/23 07:10 BP 167/81 H 12/09/23 07:10 Pulse Ox 96 12/09/23 07:10 O2 Del Method Room Air 12/09/23 07:10 BMI result Body Mass Index 39.8 Appearance: Alert. Oriented X3. No acute distress. Eyes: Pupils equal, round and reactive to light. ENT: Pharynx normal. Neck: Normal inspection. Neck supple. CVS: Normal heart rate and rhythm. Pulses normal. Respiratory: No respiratory distress. Breath sounds normal. Abdomen: Soft and nontender. Skin: Skin warm and dry. Normal skin color. Normal skin turgor. Extremities: No lower extremity edema. No calf ttp Neuro: Oriented X 3. No motor deficit. No sensory deficit. Medical Decision Making Medical Decision Making [facility] Narrative: 28 yo male with no sig PMH not vaccinated against COVID here with c/o viral syndrome no CP/SOB he is here after COVID exposure now has viral like symptoms and is asking for a test Differential Diagnosis Differential Diagnoses: The differential diagnosis associated with the presentation includes viral syndrome, flu, covid Admission/Observation Consideration of admission/observation: Escalation of care including admission/observation considered no hypoxia, tolerating PO stable for DC Lab Data [facility] Lab Attestation statement: I reviewed the patient's lab results. Labs: Lab Results 12/09/23 Range/Units 07:27 COVID-19 ([facility]) Positive A (Negative) COVID-19 Clin Com See Note Prescription Management I considered prescription management with: Antiviral (declines paxlovid) Discharge Plan Discharge Clinical Impression: COVID-19 Patient Disposition: Home, Self-Care Instructions: COVID-19 (Coronavirus Disease 2019) (ED) Additional Instructions: return for worsening symptoms, chest pain, you are so short of breath you cannot walk to your bathroom, wear a mask and protect others for the next 7 days. stay hydrated. take tylenol and motrin Regrese si los s?ntomas empeoran, dolor en el pecho, tiene tanta falta de aire que no puede caminar hasta el ba?o, use evy mascarilla y proteja a los dem?s london los pr?ximos 7 d?as. Mantente hidratado. jo tylenol y motrin Prescriptions: No Action omeprazole 20 mg capsule,delayed release(DR/EC) 20 mg PO DAILY 90 Days Qty: 90 0RF acetaminophen 500 mg capsule 500 mg PO Q6H PRN (Reason: pain) Qty: 14 0RF ondansetron HCl 4 mg tablet 4 mg PO Q8H PRN (Reason: nausea and vomiting) 4 Days Qty: 10 0RF Stand Alone Forms: Work/School Release Print Language: Portuguese
[2023-12-09 08:01] LABS: COVID-19 Test Positive (Negative); IDNOW Serial# 08D9AD1C
[2023-12-09 08:07] LABS: IDNOW Serial# 152EDE1D; Influenza A Negative (Negative); Influenza B2 Negative (Negative)
== END 2023-12-09 08:17 | disposition home or self-care (01) ==
PROVIDERS: Emergency Provider Emergency Medicine
DX: U07.1 COVID-19 (principal); F17.210 Nicotine dependence, cigarettes, uncomplicated
CPT/HCPCS: 87502; 87635; 99283

== ENCOUNTER 2024-07-11 16:16 | Emergency (ER) | payer OTHER, SELFPAY ==
[2024-07-11 17:01] VITALS: BP 138/80; PULSE 68; RESP 18; TEMP 36.8; O2SAT 98; BMI 38.3
--- NOTE | 2024-07-11 19:35 | ED_ITS ---
HPI - Wound/Laceration General Chief Complaint: Wound/Laceration Stated Complaint: face lac Time Seen by Provider: 07/11/24 19:34 Source: patient and account adjuster (Citizen [place]) Mode of arrival: ambulatory Limitations: language barrier (solomon islander speaking) History of Present Illness ED Provider: KWAME HIDALGO PA-C HPI narrative: 29-year-old male with no significant past medical history presents to the ED today for evaluation of facial laceration sustained prior to arrival. Patient states that while working on his car, he was using a drill when it slipped and grazed his chin. Reports small laceration to chin with bleeding controlled in the ED. reports minimal numbness around the area. Admits to biting his bottom lip during the incident. Denies loss of consciousness. Denies use of anticoagulation. Denies any chipped teeth. Denies difficulty moving his jaw. Denies fever/ chills. Admits his tetanus is not up-to-date. heart nurse utilized throughout visit to communicate with patient. Related Data Previous Rx's ?Medication ?Instructions ?Recorded acetaminophen 500 mg capsule 500 mg PO Q6H PRN pain #14 caps 07/30/21 omeprazole 20 mg capsule,delayed 20 mg PO DAILY 90 days #90 caps 09/21/21 release ondansetron HCl 4 mg tablet 4 mg PO Q8H PRN nausea and 02/28/23 vomiting 4 days #10 tabs Allergies Allergy/AdvReac Type Severity Reaction Status Date / Time No Known Allergies Allergy Verified 07/11/24 17:05 [No Known Allergies*] Review of Systems 2 Review of Systems: Constitutional: No fever, chills, fatigue, night sweats, weight changes ENT/Mouth: No ear pain, hearing loss, nasal congestion, sinus pain, rhinorrhea, sore throat Eyes: No eye pain, swelling, redness, vision changes, discharge Cardio: No chest pain, palpitations, WANG, orthopnea, peripheral edema Pulm: No SOB, cough, sputum, wheezing, dyspnea, hemoptysis GI: No nausea, vomiting, hematemesis, abdominal pain, diarrhea, constipation, hematochezia, melena : No irregular bleeding, dysuria, frequency, urgency, hesitancy, hematuria, flank pain, urinary flow changes, urinary incontinence or retention MSK: No back pain, neck pain, joint pain, myalgias Skin: No lesions, rashes, +facial laceration Neuro: No weakness, numbness, paresthesias, LOC, dizziness, headache Psych: No anxiety/panic, depression, SI/HI, AH/VH All other systems reviewed and are negative. [facility] Past Medical History Attestation statement: The following information was validated with the patient. Source: old records reviewed and nursing notes reviewed Medical History GERD (gastroesophageal reflux disease) Left hip pain Left foot pain Morbid obesity Arthritis Surgical History History of hip surgery Hx of appendectomy Social History Social History Housing: Apartment Alcohol intake: current Alcohol intake frequency: does not drink Alcohol type: beer Patient Tobacco Use Status: Current everyday Tobacco user Cigarettes Per Day: 4 Advance Directives: No Advance Directives Information Provided: No Do you have a plan to hurt others: No Plan Current occupational status: employed Physical Exam 2 Vital Signs: Vital Signs: Last Vital Signs Temp 98.4 F 07/11/24 21:17 Pulse 66 07/11/24 21:17 Resp 16 07/11/24 21:17 BP 125/80 07/11/24 21:17 Pulse Ox 96 07/11/24 21:17 O2 Del Method Room Air 07/11/24 21:17 BMI result Body Mass Index 38.3 Vital signs stable, afebrile Const: General: cooperative, healthy appearing, comfortable and no acute distress Orientation/consciousness: patient oriented x3 Limitations: no limitations HEENT: Head: Yes No palpable skull fracture present Face images: 1. 0.5 cm linear laceration noted to the left chin long macias line. No active bleeding. Able to open and close his jaw. Sensation slightly diminished around the laceration. Dentition WNL. There is a small abrasion noted to his lower lip. No active bleeding. Teeth and gingiva: dentition normal Eyes: General: appearance normal, both eyes and all related structures P upils: Equal, round and reactive pupils present Neck: Neck: Yes normal visual inspection Resp: Effort & Inspection: normal respiratory effort and able to speak in complete sentences Auscultation: clear to auscultation bilaterally Cardio: Rate: regular rate Rhythm: regular rhythm Skin: Other: See above Neuro: General: patient oriented x3, gait normal, tone normal and no focal motor deficits Cranial nerves: Yes Equal, round and reactive pupils present Course Course Course Narrative: 2117-- Chin laceration repaired with two 5-0 sutures. patient tolerated procedure well. bleeding controlled. advised patient to take tylenol/ motrin at home for pain/discomfort. Return in 3-5 days for suture removal. Patient has remained stable throughout ED visit today. Discussed worrisome signs and symptoms and when to return to the ED. All questions answered at this time. Patient is agreeable with disposition and stable for discharge. Medications Administered Discontinued Medications Generic Name Dose Route Start Last Admin Trade Name Freq PRN Reason Stop Dose Admin Diphtheria/Tetanus/Acell Pertussis 0.5 ml 07/11/24 19:35 07/11/24 20:00 Diphth,Pertus(Acell),Tet Adult 0.5 Ml Syringe IM 07/11/24 19:36 0.5 ml .ONCE ONE Administration Ketorolac Tromethamine 30 mg 07/11/24 19:35 07/11/24 20:00 Ketorolac Tromethamine 30 Mg/Ml Vial IM 07/11/24 19:36 30 mg ONCE ONE Administration Lidocaine HCl 5 ml 07/11/24 20:07 07/11/24 21:10 Lidocaine Hcl 1 % Mpf 5 Ml Vial INFILTRATI 07/11/24 20:08 5 ml ONCE ONE Administration Medical Decision Making Medical Decision Making [facility] Narrative: 29-year-old male with no significant past medical history presents to the ED today for evaluation of facial laceration sustained prior to arrival. Vital signs stable, afebrile. He is nontoxic-appearing and in no acute distress. On exam, there is a 0.5 cm linear laceration noted to the left chin long macias line. No active bleeding. Able to open and close his jaw. Sensation slightly diminished around the laceration. Dentition WNL. There is a small abrasion noted to his lower lip. No active bleeding. Differential diagnosis includes abrasion, laceration. Unlikely fracture. Plan for laceration repair, Tdap booster and disposition. Imaging not warranted at this time. Differential Diagnosis Differential Diagnoses: The differential diagnosis associated with the presentation includes as above. Admission/Observation Not indicated Procedures Laceration Laceration 1: Site: face Side (If applicable): left Size (cm): 0.5 Description: linear Depth: simple, single layer Local Anesthetic: lidocaine 1% Amount of anesthesia used (mL): 5 Pre-repair: wound explored and irrigated extensively Skin layer closed with: nylon Size (cm): 5-0 Number of sutures: 2 Technique: simple, interrupted Discharge Plan Discharge Clinical Impression: Laceration of face Patient Disposition: Home, Self-Care Instructions: Care For Your Stitches (ED), Laceration (ED) Additional Instructions: You have been evaluated in the Emergency Department today for a laceration to your face. Your laceration was repaired in the ED with two sutures.? Please keep the area surrounding the laceration clean and dry. Please keep the area out of the sunlight for the next 6 months to help prevent scarring.? If you develop redness or swelling at the site of your laceration please come back to the ER for a wound check. Your tetanus vaccination was updated in the ED today. I recommend you take 600mg ibuprofen every 6 hours or tylenol 650mg every 6 hours as needed for pain. If needed, you can alternate these medications so that you take one medication every 3 hours. For example, at noon take ibuprofen, then at 3pm take tylenol, then at 6pm take ibuprofen. Please follow up with your primary care physician in 3-5 days for suture removal. You can also return to the ER or another urgent care facility for this service. Return to the Emergency Department if you experience discharge from your laceration, redness around your laceration, warmth around your laceration, fever, vomiting, numbness, tingling, or any other concerning symptoms. In the case of an emergency call 911. Prescriptions: No Action omeprazole 20 mg capsule,delayed release(DR/EC) 20 mg PO DAILY 90 Days Qty: 90 0RF acetaminophen 500 mg capsule 500 mg PO Q6H PRN (Reason: pain) Qty: 14 0RF ondansetron HCl 4 mg tablet 4 mg PO Q8H PRN (Reason: nausea and vomiting) 4 Days Qty: 10 0RF [place]: [facility] [place] [facility] [facility]] [facility] [place] [facility]] Stand Alone Forms: Work/School Release Interventions: ED Discharge Assessment Last Done: 07/11/24 21:17 Discharge Date/Time: 07/11/24 21:28 Print Language: Citizen [place]
[2024-07-11] MEDS: Ketorolac Tromethamine 30 MG/ML VIAL IM (20:00)
[2024-07-11] MEDS: Diphth,Pertus(ACell),Tet Adult 0.5 ML SYRINGE IM (20:00)
[2024-07-11 20:26] VITALS: BP 125/80; PULSE 66; RESP 16; TEMP 36.9; O2SAT 96
[2024-07-11] MEDS: Lidocaine HCl 1 % MPF 5 ML VIAL INFILTRATI (21:10)
[2024-07-11 21:17] VITALS: BP 125/80; PULSE 66; RESP 16; TEMP 36.9; O2SAT 96
== END 2024-07-11 21:28 | disposition home or self-care (01) ==
PROVIDERS: Emergency Provider Emergency Medicine
DX: S01.81XA Laceration without foreign body of other part of head, initial encounter (principal); W29.8XXA Contact with other powered hand tools and household machinery, initial encounter; Y93.89 Activity, other specified; Y92.9 Unspecified place or not applicable; Y99.9 Unspecified external cause status; Z23 Encounter for immunization
CPT/HCPCS: 12011; 90471; 90715; 96372; 99283; 99284; J1885

== ENCOUNTER 2024-07-16 12:40 | Emergency (ER) | payer OTHER, SELFPAY ==
[2024-07-16 12:51] VITALS: BP 117/69; PULSE 86; RESP 18; TEMP 36.8; O2SAT 96; BMI 40.4
--- NOTE | 2024-07-16 12:52 | ED_ITS ---
HPI - General Adult General Chief complaint: General Medical Stated complaint: suture removal Time Seen by Provider: 07/16/24 12:51 Source: patient Mode of arrival: ambulatory Limitations: no limitations History of Present Illness ED Provider: Citlaly Morocho PA-C HPI narrative: Patient is a 29 year old assigned male at with a history of GERD presenting to the emergency department today for removal of sutures in his chin. Patient states that 5 days ago he had 2 stitches placed in his chin and is here to have them removed. Patient denies any discharge from the area. Patient denies any dizziness, lightheadedness, abdominal pain, nausea, vomiting, fever, chills, blurry vision, double vision, loss of vision, chest pain, difficulty breathing, shortness of breath, back pain, night sweats, pain with urination, increased urinary frequency, increased urinary urgency, blood in his urine or stool, syncope or a near syncopal episode, bowel incontinence, bladder incontinence, or any other complaints at this time. Relieving factors: none Exacerbating factors: none Associated symptoms: denies other symptoms Treatments prior to arrival: none Related Data Previous Rx's ?Medication ?Instructions ?Recorded acetaminophen 500 mg capsule 500 mg PO Q6H PRN pain #14 caps 07/30/21 omeprazole 20 mg capsule,delayed 20 mg PO DAILY 90 days #90 caps 09/21/21 release ondansetron HCl 4 mg tablet 4 mg PO Q8H PRN nausea and 02/28/23 vomiting 4 days #10 tabs Allergies Allergy/AdvReac Type Severity Reaction Status Date / Time No Known Allergies Allergy Verified 07/16/24 12:54 [No Known Allergies*] Review of Systems 2 Constitutional: Constitutional: Reports no additional constitutional complaints, Denies chills, Denies fever(s) and Denies night sweats Eyes: Eyes: Reports no additional eye complaints, Denies blurry vision, Denies change in vision, Denies diplopia, Denies eye discharge, Denies loss of vision and Denies eye pain ENT: Denies dizziness Comments: sutures in chin Cardiovascular: Cardiovascular: Reports no additional cardiovascular complaints, Denies chest pain, Denies lightheadedness, Denies Loss of Consciousness and Denies dyspnea Respiratory: Respiratory: Reports no additional respiratory complaints and Denies dyspnea Gastrointestinal: Gastrointestinal: Reports no additional gastrointestinal complaints, Denies abdominal pain, Denies melena, Denies hematochezia, Denies change in bowel habits and Denies change in stool character Genitourinary: Genitourinary: Reports no additional male genitourinary complaints, Denies hematuria, Denies oliguria, Denies difficulty urinating, Denies dysuria, Denies urinary frequency, Denies urinary hesitancy, Denies urinary incontinence and Denies urinary urgency Musculoskeletal: Musculoskeletal: Reports no additional musculoskeletal complaints, Denies numbness and Denies tingling Neurologic: Denies dizziness, Denies loss of vision, Denies numbness and Denies tingling Psychiatric: Psychiatric: Reports no additional psychiatric complaints Endocrine: Endocrine: Reports no additional endocrine complaints Hematologic/Lymphatic: Hematologic/Lymphatic: Reports no additional hematologic/lymphatic complaints Allergic/Immunologic: Allergic/Immunologic: Reports no additional allergic/immunologic complaints PMFSH Past Medical History Attestation statement: The following information was validated with the patient. Source: old records reviewed and nursing notes reviewed Medical History GERD (gastroesophageal reflux disease) Left hip pain Left foot pain Morbid obesity Arthritis Surgical History History of hip surgery Hx of appendectomy Social History Social History Housing: Apartment Alcohol intake: current Alcohol intake frequency: does not drink Alcohol type: beer Patient Tobacco Use Status: Current everyday Tobacco user Cigarettes Per Day: 4 Advance Directives: No Advance Directives Information Provided: No Do you have a plan to hurt others: No Plan Current occupational status: employed Physical Exam ED Vital Signs: Vital Signs - 24 hr 07/16/24 12:51 07/16/24 13:01 Temperature 98.3 F 98.3 F Pulse Rate 86 86 Respiratory Rate 18 18 Blood Pressure 117/69 117/69 Pulse Oximetry 96 96 Oxygen Delivery Method Room Air Room Air BMI result Body Mass Index 40.4 Const General: cooperative, no acute distress, alert and awake Nutritional Appearance: well nourished Orientation/consciousness: patient oriented x3 Limitations: no limitations HENMT Head: Yes normal to inspection and Yes atraumatic Ears: hearing grossly normal bilaterally and external ears normal General nose exam: Normal external nose present, no nasal discharge noted and no epistaxis Face images: 2 1. 2 nylon sutures - no active bleeding, no drainage, no warmth, no erythema Mouth: Normal oral and palatal mucosa present, no drooling and no muffled voice Eyes General: appearance normal, both eyes and all related structures Periorbital: periorbital findings normal Eyelids: Yes eyelids normal Conjunctivae: conjunctivae normal Pupils: Equal, round and reactive pupils present EOM: EOMs intact bilaterally Neck Neck: Yes normal visual inspection, Yes full ROM and Yes no lymphadenopathy Chest Chest palpation & inspection: normal inspection of the chest Resp Effort & Inspection: normal respiratory effort and able to speak in complete sentences GI Inspection: Yes normal to inspection Neuro General: patient oriented x3 and moves all extremities Cranial nerves: Yes Equal, round and reactive pupils present Cognition (Neuro): normal cognition Extrem General: Yes normal to inspection, Yes full ROM and Yes capillary refill normal Psych Appearance: grossly normal Mental Status: mental status grossly normal Affect: normal affect Attitude: cooperative Thought process: Normal thought process present Thought content: Normal thought content present Insight: Good insight present (Psych) Procedures Procedure Narrative Procedure Narrative: 2 nylon sutures removed from the patient's chin without incident. Medical Decision Making Medical Decision Making [facility] Narrative: Patient is a 29 year old assigned male at with a history of GERD presenting to the emergency department today for suture removal. Patient's physical exam was as noted in the physical exam portion of this note. Sutures were removed without incident. I explained my physical exam findings to the patient. I answered all questions asked by the patient. I stressed the importance of the patient taking his medication as directed (either prescribed or as the over the counter packaging recommends). I stressed the importance of the patient following up with his primary care provider. I stressed the importance of the patient returning to the emergency department immediately if his symptoms were to worsen or if he were to develop any dizziness, shortness of breath, difficulty breathing, chest pain, blurry vision, loss of vision, nausea, vomiting, abdominal pain, fever, chills, back pain, or any other complaints. Patient verbalized agreement and understanding with this treatment plan and discharge. Differential Diagnosis Differential Diagnoses: The differential diagnosis associated with the presentation includes Suture removal Admission/Observation Consideration of admission/observation: Escalation of care including admission/observation considered Patient would have been admitted to the hospital had his clinical presentation warranted hospital admission. Discharge Plan Discharge Clinical Impression: Encounter for removal of sutures Patient Disposition: Home, Self-Care Instructions: Stitches Removal (ED) Additional Instructions: Follow up with your primary care provider. Return to the emergency department immediately if your symptoms worsen or if you develop any dizziness, shortness of breath, difficulty breathing, chest pain, blurry vision, loss of vision, nausea, vomiting, abdominal pain, fever, chills, back pain, or any other complaints. Víctor?seguimiento?con beach m?dico de atenci?n primaria. Acuda inmediatamente al servicio de urgencias si ziyad s?ntomas empeoran o si presenta falta de aliento, dificultad para respirar, dolor tor?cico, mareos, aturdimiento, dolor de espalda, dolor abdominal, fiebre, escalofr?os o cualquier otro s?ntoma. Prescriptions: No Action omeprazole 20 mg capsule,delayed release(DR/EC) 20 mg PO DAILY 90 Days Qty: 90 0RF acetaminophen 500 mg capsule 500 mg PO Q6H PRN (Reason: pain) Qty: 14 0RF ondansetron HCl 4 mg tablet 4 mg PO Q8H PRN (Reason: nausea and vomiting) 4 Days Qty: 10 0RF Referrals: [facility] [place] [facility] [place] Group] (Call to establish and follow up with a primary care provider. If you already have a primary care provider, please follow up with them.) [facility] [place] [facility] [Provider Group] (Call to establish and follow up with a primary care provider. If you already have a primary care provider, please follow up with them.) [facility] [place] [facility] [Provider Group] (Call to establish and follow up with a primary care provider. If you already have a primary care provider, please follow up with them.) Interventions: ED Discharge Assessment Last Done: 07/16/24 13:01 Discharge Date/Time: 07/16/24 13:03 Print Language: Frisian
[2024-07-16 13:01] VITALS: BP 117/69; PULSE 86; RESP 18; TEMP 36.8; O2SAT 96
== END 2024-07-16 13:03 | disposition home or self-care (01) ==
PROVIDERS: Emergency Provider Emergency Medicine
DX: Z48.02 Encounter for removal of sutures (principal)
CPT/HCPCS: 99282

== ENCOUNTER 2024-08-30 07:27 | Emergency (ER) | payer OTHER, SELFPAY ==
--- NOTE | ~2024-08-30 | XR_ITS ---
EXAMINATION: XR CHEST CLINICAL INFORMATION: Fever. Myalgias. COMPARISON: Chest radiograph dated 11/17/2021. TECHNIQUE: 2 views of the chest were obtained. FINDINGS: The lungs are clear. The cardiomediastinal silhouette is normal in size. There is no pleural effusion or pneumothorax. No acute osseous abnormality. XR/XR chest 2V IMPRESSION: No acute cardiopulmonary findings. Electronically signed by: Julian Bennett MD 08/30/2024 10:49 AM EDT
[2024-08-30 07:29] VITALS: BP 127/71; PULSE 75; RESP 20; TEMP 36.8; O2SAT 97; BMI 39.8
[2024-08-30 08:35] LABS: IDNOW Serial# 08D9AD1C; Strep A Nucleic Acid Negative (Negative)
[2024-08-30 08:51] LABS: Influenza A PCR NEGATIVE (Negative); Influenza B PCR NEGATIVE (Negative); Resp Syncy Virus RNA Qual PCR NEGATIVE (Negative); SARS COV2 PCR INHOUSE NEGATIVE (Negative)
--- NOTE | 2024-08-30 09:32 | ED.GENADULT ---
HPI - General Adult General Chief complaint: Upper Respiratory Symptoms Stated complaint: Fever, sore throat Time Seen by Provider: 08/30/24 09:26 Source: patient and certified court/medical interpreter ([place]) Mode of arrival: ambulatory Limitations: language barrier ([place] speaking) History of Present Illness ED Provider: KWAME HIDALGO PA-C HPI narrative: 29-year-old Uzbek-speaking male with past medical history significant for GERD presents to the ED today for evaluation of subjective fevers, sore throat, myalgias and headache which began yesterday. Reports taking Tylenol at approximately 11PM last night. Patient states that a few of his coworkers recently tested positive for COVID. No other known sick contacts. Denies recent tick or insect bites. Denies dysuria, increased urinary freq/ urgency, cough. translator interpreter utilized throughout visit to communicate with patient. Related Data Previous Rx's ?Medication ?Instructions ?Recorded acetaminophen 500 mg capsule 500 mg PO Q6H PRN pain #14 caps 07/30/21 omeprazole 20 mg capsule,delayed 20 mg PO DAILY 90 days #90 caps 09/21/21 release ondansetron HCl 4 mg tablet 4 mg PO Q8H PRN nausea and 02/28/23 vomiting 4 days #10 tabs benzocaine 15 mg-menthol 2.6 mg 1 nash mucous membrane Q2-4H PRN 08/30/24 lozenges (Cepacol Sore Throat sore throat #16 ea (benzocaine-menthol)) Allergies Allergy/AdvReac Type Severity Reaction Status Date / Time No Known Allergies Allergy Verified 08/30/24 07:30 [No Known Allergies*] Review of Systems Review of Systems: Constitutional: No fever, chills, fatigue, night sweats, weight changes ENT/Mouth: No ear pain, hearing loss, nasal congestion, sinus pain, rhinorrhea, +sore throat, +odynophagia, No dysphagia Eyes: No eye pain, swelling, redness, vision changes, discharge Cardio: No chest pain, palpitations, WANG, orthopnea, peripheral edema Pulm: No SOB, cough, sputum, wheezing, dyspnea, hemoptysis GI: No nausea, vomiting, hematemesis, abdominal pain, diarrhea, constipation, hematochezia, melena : No irregular bleeding, dysuria, frequency, urgency, hesitancy, hematuria, flank pain MSK: No back pain, neck pain, joint pain, +myalgias Skin: No lesions, rashes Neuro: No weakness, numbness, paresthesias, LOC, dizziness, +headache All other systems reviewed and are negative. [facility] Past Medical History Attestation statement: The following information was validated with the patient. Source: old records reviewed and nursing notes reviewed Medical History GERD (gastroesophageal reflux disease) Left hip pain Left foot pain Morbid obesity Arthritis Surgical History History of hip surgery Hx of appendectomy Social History Social History Housing: Apartment Alcohol intake: current Alcohol intake frequency: does not drink Alcohol type: beer Patient Tobacco Use Status: Current everyday Tobacco user Cigarettes Per Day: 4 Advance Directives: No Current occupational status: employed Physical Exam ED Vital Signs: Vital Signs - 24 hr 08/30/24 07:29 Temperature 98.2 F Pulse Rate 75 Respiratory Rate 20 Blood Pressure 127/71 Pulse Oximetry 97 Oxygen Delivery Method Room Air BMI result Body Mass Index 39.8 Vital signs stable, afebrile Const General: cooperative, healthy appearing, comfortable, no acute distress, alert and awake Orientation/consciousness: patient oriented x3 Limitations: no limitations HENMT Other: + posterior oropharynx erythematous, no edema, uvula is midline, no tonsilar exudates or peritonsillar masses, controlling secretions and speaking in complete sentences. Head: Yes normal to inspection, Yes normocephalic and Yes atraumatic Ears: hearing grossly normal bilaterally, external ears normal, TM's normal bilaterally, EAC's normal, mastoids normal and no periauricular adenopathy General nose exam: Normal external nose present and No nasal discharge present Face and sinus: Yes normal facial exam and Yes sinuses nontender Eyes General: appearance normal, both eyes and all related structures Pupils: Equal, round and reactive pupils present Neck Other: + no cervical, submandibular or submental LAD. Neck: Yes normal visual inspection and Yes full ROM Resp Effort & Inspection: normal respiratory effort and able to speak in complete sentences Auscultation: clear to auscultation bilaterally Cardio Rate: regular rate Rhythm: regular rhythm GI Inspection: Yes normal to inspection Palpation (GI): Soft to palpation and nontender Skin General skin exam: no rashes or lesions noted Neuro General: patient oriented x3, gait normal and moves all extremities Cranial nerves: Yes Equal, round and reactive pupils present Extrem General: Yes normal to inspection Course Course Course Narrative: 1106 --- patient tested negative for COVID, flu, RSV, strep throat. Chest x-ray unremarkable. No signs of pneumonia or bronchitis. Offered Toradol for myalgias/headache however patient declining at this time. Likely viral upper respiratory infection. Cepacol throat lozenges sent to pharmacy for sore throat. Patient has remained stable throughout ED visit today. Discussed worrisome signs and symptoms and when to return to the ED. All questions answered at this time. Patient is agreeable with disposition and stable for discharge. Medications Administered Discontinued Medications Generic Name Dose Route Start Last Admin Trade Name Freq PRN Reason Stop Dose Admin Ketorolac Tromethamine 30 mg 08/30/24 10:10 08/30/24 10:17 Ketorolac Tromethamine 30 Mg/Ml Vial IM 08/30/24 10:11 Not Given ONCE ONE Medical Decision Making Medical Decision Making [facility] Narrative: 29-year-old Uzbek-speaking male with past medical history significant for GERD presents to the ED today for evaluation of subjective fevers, sore throat, myalgias and headache which began yesterday. Vital signs stable, afebrile. He is nontoxic appearing in no acute distress. On exam, posterior oropharynx erythematous, otherwise WNL. Speaking in full complete sentences. Controlling secretions. Lungs clear. No LAD. Skin warm, dry, intact, no rashes. Clinical concern for strep throat, viral syndrome, pneumonia. Presentation not consistent with tick-borne illness, insect bite, mono. Presentation consistent with urinary tract infection. Unlikely [employer], retropharyngeal abscess, dental abscess, epiglottis, acute respiratory distress. Plan for viral serology, strep swab, chest x-ray, Toradol for pain control and re-evaluation Differential Diagnosis Differential Diagnoses: The differential diagnosis associated with the presentation includes as above. Admission/Observation Not indicated Lab Data [facility] Lab Attestation statement: I reviewed the patient's lab results. as above Labs: Lab Results 08/30/24 Range/Units 08:05 Influenza Type A (PCR) NEGATIVE (Negative) Influenza Type B (PCR) NEGATIVE (Negative) RSV RNA Qual (PCR) NEGATIVE (Negative) SARS-CoV-2 RNA (RT-PCR) NEGATIVE (Negative) S. pyogenes GrpA AMILCAR Negative (Negative) Independent Interpretation I performed an independent interpretation of an: Plain X-Ray Interpretation: CXR without consolidation or infiltrate, agree with radiologist's interpretation. Radiology Impression Discussion of test interpretation with radiology: I have reviewed the radiologist's reading. Radiologist Impression: EXAMINATION: XR CHEST CLINICAL INFORMATION: Fever. Myalgias. COMPARISON: Chest radiograph dated 11/17/2021. TECHNIQUE: 2 views of the chest were obtained. FINDINGS: The lungs are clear. The cardiomediastinal silhouette is normal in size. There is no pleural effusion or pneumothorax. No acute osseous abnormality. XR/XR chest 2V IMPRESSION: No acute cardiopulmonary findings. Electronically signed by: Julian Bennett MD 08/30/2024 10:49 AM EDT RP Workstation: [id number] Independent Historian Clinical information obtained from an independent historian. History obtained from or confirmed by: Spouse () External Record Review External record reviewed: Inpatient record Prescription Management I considered prescription management with: Pain Medication (Tylenol, Motrin) and Other (Cepacol throat lozenges) Social Determinants Patient?s care significantly limited by Social Determinants of Health including: Other Social Determinant of Health Critical Care Time Critical Care Time Critical Care Time: No Discharge Plan Discharge Clinical Impression: Acute viral syndrome Patient Disposition: Home, Self-Care Instructions: Viral Syndrome (ED) Additional Instructions: You tested negative for COVID, flu, RSV, strep throat. Your chest x-ray is normal. You likely have a viral upper respiratory infection that does not require antibiotics. Cepacol throat lozenges have been sent to your pharmacy for you to take as needed for sore throat. I recommend you take 600mg ibuprofen every 6 hours or Tylenol 650mg every 6 hours as needed for pain/ fevers. If needed, you can alternate these medications so that you take one medication every 3 hours. For example, at noon take ibuprofen, then at 3pm take Tylenol, then at 6pm take ibuprofen. Follow up with PCP. Return with new or worsening symptoms. In the case of an emergency call 911. Prescriptions: New Cepacol Sore Throat (carolyn-men) 15-2.6 mg lozenge 1 nash mucous membrane Q2-4H PRN (Reason: sore throat) Qty: 16 0RF No Action omeprazole 20 mg capsule,delayed release(DR/EC) 20 mg PO DAILY 90 Days Qty: 90 0RF acetaminophen 500 mg capsule 500 mg PO Q6H PRN (Reason: pain) Qty: 14 0RF ondansetron HCl 4 mg tablet 4 mg PO Q8H PRN (Reason: nausea and vomiting) 4 Days Qty: 10 0RF Stand Alone Forms: Work/School Release Discharge Date/Time: 08/30/24 11:07 Print Language: Uzbek
[2024-08-30 11:06] VITALS: BP 127/71; PULSE 75; RESP 18; TEMP 36.8; O2SAT 97
== END 2024-08-30 11:07 | disposition home or self-care (01) ==
PROVIDERS: Emergency Provider Emergency Medicine
DX: B34.9 Viral infection, unspecified (principal); R50.9 Fever, unspecified; J02.9 Acute pharyngitis, unspecified; M79.10 Myalgia, unspecified site; Z03.818 Encounter for observation for suspected exposure to other biological agents ruled out
CPT/HCPCS: 0241U; 71046; 87651; 99282; 99283